=== PATIENT | male | born 1985 | race Caucasian/White ===

== ENCOUNTER → 2020-04-18 | Outpatient (CLI) | payer OTHER ==
[~2020-04-18] MED LIST: GADOTERATE 10 MMOL/20 ML SYR ONE
== END | disposition home or self-care (01) ==
LOC: CFH 09:48
PROVIDERS: ATTEND Nurse Practitioner Family
DX: R25.3 Fasciculation (principal); R20.2 Paresthesia of skin; J34.1 Cyst and mucocele of nose and nasal sinus; R41.89 Other symptoms and signs involving cognitive functions and awareness
CPT/HCPCS: 70553; A9575